=== PATIENT | female | born 1945 | race Caucasian/White ===

== ENCOUNTER → 2017-10-07 | Outpatient (CLI) | payer MEDICARE ==
[~2017-10-07] MED LIST: AXIR30SO TOP; CYCL5TAB PO; ESTR1TAB PO; NAPR500 PO
--- NOTE | 2017-10-09 10:26 | RSPPFT ---
DATE OF PROCEDURE: 10/07/17 COMMENTS: Spirometry shows FVC of 2.1 at 88% of predicted, FEV1 of 1.7 at 91%, FEV1/FVC ratio is normal. Flow is normal at FEF 25, FEF 50, FEF 75 and FEF 25-75. There is no response after bronchodilator treatment. Lung volumes show residual volume is normal. TLC is normal. Diffusion capacity is normal. Flow volume loop indicates a normal pattern. IMPRESSION: 1. Normal spirometry. 2. No response after bronchodilator treatment. 3. Normal lung volumes. 4. Normal diffusion capacity.
== END ==
LOC: HRSP 13:07
PROVIDERS: ATTEND Specialist
DX: R05 Cough (principal)
CPT/HCPCS: 94060; 94726; 94729